=== PATIENT | female | born 1965 | race American Indian/Alaskan Native ===

== ENCOUNTER 2017-01-14 06:38 | Inpatient (IN) | payer MEDICAID ==
--- NOTE | 2017-01-14 07:08 | C.PDOC ---
History Of Present Illness 51 y/o female with hx depression and polysubstance abuse presents for detox. pt reports last use of half a bag of heroin at 430 am. denies any physical complaints, denies hi, si and ah. Time Seen by Provider: 01/14/17 06:58 Chief Complaint (Nursing): Substance Abuse History Per: Patient History/Exam Limitations: no limitations Suicide/Self Injury Attempted (Context): None Past Medical History Reviewed: Historical Data, Nursing Documentation, Vital Signs Vital Signs: Last Vital Signs Temp 97.6 F 01/14/17 06:48 Pulse 74 01/14/17 06:48 Resp 16 01/14/17 06:48 BP 146/85 01/14/17 06:48 Pulse Ox 100 01/14/17 08:28 - Medical History PMH: Depression Surgical History: Tonsillectomy Family History: States: Unknown Family Hx - Social History Hx Tobacco Use: Yes Hx Alcohol Use: No Hx Substance Use: Yes (sniffs 7-10 bags heroin per day, occasional crack cocaine ) Review Of Systems Constitutional: Negative for: Fever, Chills Cardiovascular: Negative for: Chest Pain Respiratory: Negative for: Cough, Shortness of Breath Gastrointestinal: Negative for: Abdominal Pain Skin: Negative for: Rash Neurological: Negative for: Weakness, Numbness Physical Exam - Physical Exam Appears: Non-toxic, No Acute Distress Skin: Warm, Dry Head: Atraumatic, Normacephalic Neck: Normal ROM Chest: No Deformity, No Tenderness Cardiovascular: Rhythm Regular, No Murmur Respiratory: Normal Breath Sounds, No Rales, No Rhonchi, No Wheezing Gastrointestinal/Abdominal: Bowel Sounds, Soft, No Tenderness Extremity: Normal ROM, No Pedal Edema, No Calf Tenderness Neurological/Psych: Oriented x3, Normal Speech, Normal Cognition, Normal Motor, Normal Sensation ED Course And Treatment - Laboratory Results Result Diagrams: 01/14/17 07:39 01/14/17 07:05 O2 Sat by Pulse Oximetry: 100 Medical Decision Making Medical Decision Makin51 y/o female for detox; already pre-screened; labs and urine sent, pending results for medical clearance. 815 am urine with trace le, few wbc and sq epi- pt denies any urinary symptoms ; likely contaminated specimen. pt made aware potassium 3.5, advised to eat banana, orange. pt has slightly low platelet; recommend out patient follow up in medical clinic for further eval; pt has no acute bleeding issues. pt medically cleared for detox program. crisis team advised. Disposition Discussed With : Valdo Navarrete Doctor Will See Patient In The: Hospital - Disposition Disposition Time: 08:27 Condition: STABLE Forms: [facility] (Colombian) - Clinical Impression Clinical Impression: Opioid use disorder, severe, dependence Decision To Admit - Pt Status Changed To: Hospital Disposition Of: Inpatient - Admit Certification Admit to Inpatient:: After my assessment, the patient will require hospitalization for at least two midnights. This is because of the severity of symptoms shown, intensity of services needed, and/or the medical risk in this patient being treated as an outpatient. - InPatient: Physician Admission Certification: I certify that this patient requires 2 or more midnights of care for the following reason:: for detox program - . Bed Request Type: Detox Admitting Physician: Valdo Navarrete Patient Diagnosis: Opioid use disorder, severe, dependence
[2017-01-14 07:20] LABS: RBC URINE 7 /hpf (0-3); URINE BACTERIA OCC (<OCC); URINE BILIRUBIN NEGATIVE (NEGATIVE); URINE BLOOD NEGATIVE (NEGATIVE); URINE COLOR Amber (YELLOW); URINE GLUCOSE (UA) NORMAL (Normal); URINE KETONE TRACE mg/dL (NEGATIVE); URINE LEUKOCYTE ESTERASE TRACE Leu/uL (Negative); URINE PROTEIN 1+ mg/dL (NEGATIVE); WBC URINE 8 /hpf (0-5)
[2017-01-14 07:35] LABS: CHLORIDE 99 mmol/L (98-107)
[2017-01-14 07:36] LABS: POTASSIUM 3.5 mmol/L (3.6-5.2); SODIUM 143 mmol/L (132-148)
[2017-01-14 07:38] LABS: ALKALINE PHOSPHATASE 101 U/L (38-126); ALT/SGPT 33 U/L (9-52); AST/SGOT 42 U/L (14-36); BILIRUBIN,TOTAL 0.6 mg/dL (0.2-1.3); BLOOD UREA NITROGEN 8 mg/dL (7-17); CARBON DIOXIDE 30 mmol/L (22-30); GFR AFRICAN-AMERICAN > 60; GLUCOSE,RANDOM 72 mg/dL (65-105)
[2017-01-14 07:39] LABS: ALCOHOL SERUM < 10 mg/dl (0-10); CALCIUM 8.7 mg/dl (8.6-10.4)
[2017-01-14 07:42] LABS: BASO # 0.1 K/uL (0.0-0.2); LYMPH # 1.6 K/uL (1.0-4.3); MEAN CORPUSCULAR HEMOGLOBIN 26.6 pg (27.0-31.0); WHITE BLOOD COUNT 5.1 K/uL (4.8-10.8)
[2017-01-14 07:53] LABS: BASO % 1.2 % (0.0-2.0); EOS % 0.3 % (0.0-4.0); HEMATOCRIT 39.5 % (34.0-47.0); MEAN CORPUSCULAR HGB CONC 32.5 g/dL (33.0-37.0); MEAN PLATELET VOLUME 9.2 fL (7.2-11.7); MONO # 0.6 K/uL (0.0-0.8); MONO % 12.5 % (0.0-10.0); NRBC % 0.7 % (0.0-2.0); RED CELL DISTRIBUTION WIDTH 15.3 % (11.5-14.5)
[2017-01-14] MEDS ORDERED: Aluminum Hydroxide/Magnesium Hydroxide Susp (30 mL) PO PRN (08:56)
--- NOTE | 2017-01-14 15:43 | PCM.BM ---
Addendum entered and electronically signed by Deya Salazar RN 02/03/17 22:44 : Treatment Plan Review - Problem Potential for opiate withdrawal Time Initiated: 15:41 Addendum entered and electronically signed by Doris Grover 01/15/17 18:12: Original Note: <Deya Salazar - Last Filed: 01/14/17 15:44> Treatment Plan Problems - Problems identified on initial assessmt Potential for opiate withdrawal Date Initiated: 01/14/17 Time Initiated: 15:41 Assessment reference: NA Status: Active Priority: 1 Treatment assets and liabiliti Patient Assests: ADL independent, negotiates basic needs, cognitively intact Patient Liabilities: substance abuse - Milieu Protocol Maintain good personal hygiene: daily Encourage regular showers, daily Remind patient to perform daily oral care Conduct patient checks and document Observation sheet: Q15 minutes Maintain personal safety: every shift Educate patient to report safety concerns to staff, every shift Monitor environment for contraband/sharps Medication safety: Monitor for expected outcome, potential side effects: every shift, Assess barriers to learning: every shift, Assess readiness for medication education: every shift <Valdo Navarrete - Last Filed: 01/14/17 22:53> - Diagnosis (1) Opioid use disorder, severe, dependence Status: Acute Interventions: 01/14/17 22:53 * Assess 7x/week regarding severity of withdrawal * Educate regarding risks, benefits, side effects and alternatives of medications * Use Motivational Interviewing for abstinence * Use CBT for relapse prevention * Medication management for withdrawal symptoms * Encourage medication assisted treatment * <Doris Grover - Last Filed: 01/15/17 18:11> Family Contact Family involvement: Family/SO is involved Family contact: Patient agrees to contact, Telephone contact initiated by staff - Goals for Treatment Patient goals for treatment: Complete detox and transtion to [facility] in [place]. Discharge/Continuing Care - Education Needs Education Needs: Patient Medication, Patient Diagnosis/Disease Process, Patient Coping Skills, Patient Anger Management skills, Patient Placement options, Patient Community resources - Discharge Discharge Criteria: No longer exhibiting s/s of withdrawal, Reduction of target symptoms Discharge to:: Substance Abuse Rehab - Treatment Team Participation Patient/Family/SO Statement: 01/15/17 18:10 "I wanna go to [facility] in [facility]--I heard it's a good program." Discussed with Family/SO: No Was Patient/Family/SO present at Treatment Team Meeting: Yes
--- NOTE | 2017-01-14 15:50 | PCM.PSYCH ---
Initial Psychiatric Evaluation - Initial Psychiatric Evaluation Type of Admission: Voluntary Legal Status: Capacity Chief Complaint (in patient's own words): "I relapsed on heroin" History of Present Illness and Precipitating Events: Pt is a 51 year old female with a past medical history of depression and polysubstance abuse. She has a long history of heroin dependence and came to the ED for detox because she "needs change." Pt reports to shooting 7-10 bags of heroin daily. She began at the age of 28 when her mother . Her last use was 1/2 bag this morning at 4:30am. She also reports to using cocaine a couple of times each week, smoking 1/2 pack cigarettes daily, and sporadically smoking marijuana. She denies use of alcohol and other drugs. She has been to 2 detoxes and 2 rehabs in the past. She abstained from heroin use for an unspecified amount of time but relapsed in March 2016. She reports a psychiatric history of depression for which she states she takes seroquel 200 mg. She denies any history of suicide attempts, trauma, and panic attacks. She denies past psychiatric hospitalization. She denies any history of substance abuse in her family. Patient currently reports of withdrawal symptoms including yawning, body aches and piloerection. She denies SI, HI, and hallucinations. She reports that she is willing to stay in detox "as long as it takes." Past Medical History: Denies Family Medical History: Denies Social: Single, no children, currently lives in [place] with sister, unemployed Current Medications: Active Medications Generic Name Dose Route Start Last Admin Trade Name Freq PRN Reason Stop Dose Admin Al Hydrox/Mg Hydrox/Simethicone 30 ml 01/14/17 08:56 Maalox 30 Ml PO TID PRN Indigestion / Heartburn Clonidine HCl 0.1 mg 01/14/17 08:56 Catapres PO Q8 PRN COWS Score More or Equal to 5 Hydroxyzine HCl 50 mg 01/14/17 08:57 Atarax PO Q6H PRN Anxiety Ibuprofen 600 mg 01/14/17 08:57 Motrin Tab PO Q6H PRN Pain, moderate (4-7) Loperamide HCl 2 mg 01/14/17 08:56 Imodium PO Q8 PRN Diarrhea Methadone HCl 15 mg 01/15/17 10:00 Methadone PO 01/18/17 09:59 Q24H [place] Taper Ondansetron HCl 4 mg 01/14/17 08:56 Zofran Tab PO Q8 PRN Nausea/Vomiting Quetiapine Fumarate 100 mg 01/14/17 22:00 Seroquel PO HS [place] Past Psychiatric History - Past Psychiatric History Previous Treatment History: Intensive Outpatient Pertinent Medical Hx (Current Medical&Sleep Prob, Allergies): Allergies Allergy/AdvReac Type Severity Reaction Status Date / Time No Known Allergies Allergy Verified 01/14/17 06:50 No Known Home Med 01/14/17 Review of Systems - Neurological Neurological: UNREMARKABLE - Psychiatric Psychiatric: Abnormal Sleep Pattern, Anhedonia, Anxiety, Depression, Difficulty Concentrating. absent: Hallucinations, Homicidal Ideation, Paranoia, Suicidal Ideation Mental Status Examination - Personal Presentation Personal Presentation: Looks stated age - Affect Affect: Constricted - Motor Activity Motor Activity: Calm - Reliability in Providing Information Reliability in Providing Information: Good - Speech Speech: Organized - Mood Mood: Depressed - Formal Thought Process Formal Thought Process: No Impairment - Cognitive Functions Orientation: Person, Place, Situation, Time Sensorium: Alert Attention/Concentration: Attentive Estimate of Intelligence: Below average Judgement: Intact, as evidence by: Insight regarding need for hospitalization Memory: Recent intact, as evidence by: Ability to recall events of the day, Remote intact, as evidenced by: Abilit to recall sig. life events - Risk Risk: Withdrawal, Diminished functioning - Strength & Assets Inventory Strength & Assets Inventory: Cooperative - Limitations Limitations: Living alone DSM 5 DX - DSM 5 DSM 5 Diagnosis: Opioid withdrawal Opioid use d/o- severe MDD, recurrent, mild - Recommended/Plan of Treatment Treatment Recommendations and Plan of Treatment: Opioid use disorder CBT and [place] Psychoeducation Supportive therapy, individual therapy Use [place] for abstinence Opioid withdrawal Psychoeducation SUpportive therapy, individual therapy Clonidine 0.1 mg PO Q8 PRN Start methadone taper tomorrow 01/15 Major depressive disorder recurrent CBT Psychoeducation Supportive therapy, group therapy, individual therapy Seroquel 100 mg PO 33 min Projected ELOS: 4-5 days - Smoking Cessation Smoking Cessation Initiated: No Reason for not providing: Pt refuses nicotine patch
--- NOTE | 2017-01-15 15:05 | PCM.PYCHPN ---
Psychiatric Progress Note - Psychiatric Progress Note Patient seen today, length of contact: 15 minutes Patient Chief Complaint: "I relapsed on heroin" Problems Identified/Issues Discussed: Pt is seen, chart reviewed, case discussed with staff. Pt is compliant with medications and reports no side effects. Pt reports that she slept well last night. She currently reports withdrawal symptoms of stomach pain but denies tremors and sweats. Symptoms are improving but pt needs more time to stablize. After care discussed. Pt reports she would like to go to [facility] in [facility]. States she will work on this with SW today. Support and psychoeducation given. Medication Change: Yes (detox changes daily) Medical Record Reviewed: Yes Mental Status Examination - Cognitive Function Orientation: Person, Place, Situation, Time Memory: Intact Attention: WNL Concentration: WNL Association: WNL Fund of Knowledge: WNL - Mood Mood: Depressed - Affect Affect: Constricted - Speech Speech: Appropriate - Formal Thought Process Formal Thought Process: No Impairment - Suicidal Ideation Suicidal Ideation: No - Homicidal Ideation Homicidal Ideation: No Goal/Treatment Plan - Goal/Treatment Plan Need for Continued Stay: Remain at risks for inpatient hospitalization, Discharge may exacerbated symptoms Progress Toward Problem(s) and Goals/Treatment Plan: Opioid use disorder - severe CBT and [place] Psychoeducation Supportive therapy, individual therapy Use [place] for abstinence Opioid withdrawal Psychoeducation Supportive therapy, individual therapy Clonidine 0.1 mg PO Q8 PRN Methadone taper starts today Major depressive disorder recurrent CBT Psychoeducation Supportive therapy, group therapy, individual therapy Seroquel 100 mg PO Estimated Date of D/C: 01/17/17
--- NOTE | 2017-01-16 13:48 | PCM.PYCHPN ---
Psychiatric Progress Note - Psychiatric Progress Note Patient seen today, length of contact: 15 minutes Patient Chief Complaint: "I still can't eat" Problems Identified/Issues Discussed: Pt is seen, chart reviewed, case discussed with staff. Pt is compliant with medications and reports no side effects. Pt currently reports lack of appetite and "uneasiness." She denies insomnia, pain, chills. She is counseled to ask for medication if she experiences increasing uneasiness. Pt is improving but needs more time to stabilize. After care discussed. Plans to attend [facility] in [facility]. Will call today with SW. Support and psychoeducation given. Medication Change: Yes (detox changes daily) Medical Record Reviewed: Yes Mental Status Examination - Cognitive Function Orientation: Person, Place, Situation, Time Memory: Intact Attention: WNL Concentration: WNL Association: WNL Fund of Knowledge: WNL - Mood Mood: Depressed - Affect Affect: Constricted - Speech Speech: Appropriate - Formal Thought Process Formal Thought Process: No Impairment - Suicidal Ideation Suicidal Ideation: No - Homicidal Ideation Homicidal Ideation: No Goal/Treatment Plan - Goal/Treatment Plan Need for Continued Stay: Remain at risks for inpatient hospitalization, Discharge may exacerbated symptoms Progress Toward Problem(s) and Goals/Treatment Plan: Opioid use disorder - severe CBT Psychoeducation Supportive therapy, individual therapy Use [place] for abstinence Opioid withdrawal Psychoeducation Supportive therapy, individual therapy Clonidine 0.1 mg PO Q8 PRN Continue methadone taper Major depressive disorder recurrent CBT Psychoeducation Supportive therapy, group therapy, individual therapy Seroquel 100 mg PO Estimated Date of D/C: 01/18/17 If changed, why: Pt needs more time to stabilize
--- NOTE | 2017-01-17 15:06 | PCM.PYCHPN ---
Psychiatric Progress Note - Psychiatric Progress Note Patient seen today, length of contact: 15 minutes Patient Chief Complaint: "I don't feel confident leaving yet" Problems Identified/Issues Discussed: Pt is seen, chart reviewed, case discussed with staff. Pt is compliant with medications and reports no side effects. Pt expressed anxiety regarding upcoming discharge (scheduled Friday01/21/17) because she needs to collect her ID and certificate before she will be able to go to [facility] in [facility]. She explains that she needs to coordinate this with her sister with whom she lives in [place]. Pt is reassured that she will be well prepared for discharge by Friday. Pt reports that she does not want to be discharged on any medication despite long history of dependence stating "I can do it." Pt reports to feel better and currently denies symptoms of withdrawal. Support and psychoeducation given. Medication Change: Yes (detox changes daily) Medical Record Reviewed: Yes Mental Status Examination - Cognitive Function Orientation: Person, Place, Situation, Time Memory: Intact Attention: WNL Concentration: WNL Association: WNL Fund of Knowledge: WNL - Mood Mood: Depressed, Anxious - Affect Affect: Constricted - Speech Speech: Appropriate - Formal Thought Process Formal Thought Process: No Impairment - Suicidal Ideation Suicidal Ideation: No - Homicidal Ideation Homicidal Ideation: No Goal/Treatment Plan - Goal/Treatment Plan Need for Continued Stay: Remain at risks for inpatient hospitalization, Discharge may exacerbated symptoms Progress Toward Problem(s) and Goals/Treatment Plan: Opioid use disorder - severe CBT Psychoeducation Supportive therapy, individual therapy Use [place] for abstinence Opioid withdrawal Psychoeducation Supportive therapy, individual therapy Clonidine 0.1 mg PO Q8 PRN Continue methadone taper Major depressive disorder recurrent CBT Psychoeducation Supportive therapy, group therapy, individual therapy Seroquel 100 mg PO Estimated Date of D/C: 01/21/17 (Per pt's request) - Smoking Cessation Smoking Cessation Initiated: No
[2017-01-18 06:33] VITALS: RESP 18
[2017-01-18 09:22] VITALS: BP 130/85; PULSE 76; TEMP 97.6; O2SAT 100
== END 2017-01-18 09:15 | disposition home or self-care (01) | DRG 745 ==
LOC: C.ER 06:38 → C.7D 08:26
PROVIDERS: ADMIT Psychiatry & Neurology Psychiatry; ATTEND Psychiatry & Neurology Psychiatry
PROC: HZ2ZZZZ Detoxification Services for Substance Abuse Treatment (ICD-10-PCS; principal; 2017-01-14)
PROC: GZ56ZZZ Individual Psychotherapy, Supportive (ICD-10-PCS; 2017-01-14)
DX: F11.23 Opioid dependence with withdrawal (principal); F41.9 Anxiety disorder, unspecified; F17.210 Nicotine dependence, cigarettes, uncomplicated; F12.90 Cannabis use, unspecified, uncomplicated